=== PATIENT | female | born 1960 | race African-American/Black ===

== ENCOUNTER 2016-10-08 20:40 | Emergency (ER) | payer MEDICAID ==
[~2016-10-08] VITALS: Ht 165.1 cm; Wt 101.6 kg
[2016-10-08 21:00] VITALS: BP 124/77
[2016-10-08] MEDS ORDERED: KETOROLAC TROMETH 60MG/2ML VIAL IM ONE (23:15)
== END 2016-10-09 00:25 | disposition home or self-care (01) ==
LOC: ER 20:52
DX: M79.605 Pain in left leg (principal); Z76.0 Encounter for issue of repeat prescription; Z88.2 Allergy status to sulfonamides
CPT/HCPCS: 96372; 99283; J1885

== ENCOUNTER 2020-11-11 07:14 | Emergency (ER) | payer MEDICAID ==
[~2020-11-11] VITALS: Ht 165.1 cm; Wt 93.0 kg
[2020-11-11 08:11] LABS: Basophils # (auto) 0 10 ^3/uL (0-0.2); Basophils % (auto) 0.4 % (0.0-2.0); Eosinophils # (auto) 0.1 10 ^3/uL (0-0.8); Lymphocytes # (auto) 2.3 10 ^3/uL (0.4-5.4); Monocytes # (auto) 0.5 10 ^3/uL (0-1.3); Neutrophils # (auto) 6.9 10 ^3/uL (1.6-8.6)
[2020-11-11 08:14] LABS: Eosinophils % (auto) 1.3 % (0.0-7.0); Hematocrit 42.1 % (36.0-46.0); Lymphocytes % (auto) 23.5 % (10.0-50.0); Mean Corpuscular Hemoglobin 26.2 pg (28.0-32.0); Mean Corpuscular Hgb Conc. 33.3 g/dL (32.0-36.0); Mean Corpuscular Volume 78.6 fL (80.0-100.0); Monocytes % (auto) 5.3 % (0.0-12.0); Neutrophils % (auto) 69.5 % (37.0-80.0); Platelet Count (auto) 241 10^3/uL (140-450); Red Blood Cells 5.36 10^6/uL (4.0-5.20); Red Cell Distribution Width 13.8 % (11.8-14.3); White Blood Cell 9.9 10^3/uL (4.4-10.8)
[2020-11-11 08:25] LABS: Chloride 108 mmol/L (98-107); Potassium 3.8 mmol/L (3.5-5.1); Sodium 141 mmol/L (136-145)
[2020-11-11 08:32] LABS: Urine Bacteria FEW /hpf (None Seen); Urine Blood Negative /uL (Negative); Urine Mucus FEW (None Seen); Urine Specific Gravity 1.033 (1.001-1.035); Urine WBC 11 /hpf (0 - 5)
[2020-11-11 08:34] LABS: Alanine Aminotransferase 15 U/L (13-56); Alkaline Phosphatase 21 U/L (45-117); Anion Gap 10 (5-15); Aspartate Aminotransferase 14 U/L (15-37); BUN/Creatinine Ratio 21.9; Bilirubin, Total 0.9 mg/dL (0.2-1.0); Blood Urea Nitrogen 21 mg/dL (7-18); Calcium 9.2 mg/dL (8.5-10.1); Carbon Dioxide 23 mmol/L (21-32); GFR African American 77 mL/min; GFR Non-African American 63 mL/min; Glucose 83 mg/dL (74-106); Total Protein 7.6 g/dL (6.4-8.2)
[2020-11-11] MEDS ORDERED: cefTRIAXone 1GM/50ML D5W 50 ML IV ONE (10:45)
[2020-11-11] MEDS ORDERED: SODIUM CHLORIDE 0.9% 500 ML IVB ONE (10:45)
[2020-11-11] MEDS ORDERED: SODIUM CHLORIDE 0.9% 1,000 ML IV ONE (10:45)
[2020-11-11 12:51] VITALS: BP 131/92
== END 2020-11-11 12:54 | disposition home or self-care (01) ==
LOC: ER 07:14
DX: N39.0 Urinary tract infection, site not specified (principal); K30 Functional dyspepsia; R11.2 Nausea with vomiting, unspecified; Z88.2 Allergy status to sulfonamides
CPT/HCPCS: 36415; 80053; 81001; 84484; 85025; 93005; 96365; 99285; J0696; J7030; J7040

== ENCOUNTER 2021-02-28 13:03 | Emergency (ER) | payer MEDICAID ==
[~2021-02-28] VITALS: Ht 165.1 cm; Wt 93.0 kg
[2021-02-28 13:10] VITALS: BP 139/94
[2021-02-28 13:56] LABS: Basophils # (auto) 0 10 ^3/uL (0-0.2); Eosinophils # (auto) 0 10 ^3/uL (0-0.8); Mean Corpuscular Hemoglobin 25.4 pg (28.0-32.0); Red Cell Distribution Width 13.5 % (11.8-14.3); White Blood Cell 12.7 10^3/uL (4.4-10.8)
[2021-02-28 14:00] LABS: Basophils % (auto) 0.3 % (0.0-2.0); Hematocrit 43.5 % (36.0-46.0); Lymphocytes # (auto) 0.8 10 ^3/uL (0.4-5.4); Lymphocytes % (auto) 6.2 % (10.0-50.0); Mean Corpuscular Hgb Conc. 32.2 g/dL (32.0-36.0); Mean Corpuscular Volume 78.8 fL (80.0-100.0); Monocytes # (auto) 0.4 10 ^3/uL (0-1.3); Monocytes % (auto) 3.5 % (0.0-12.0); Neutrophils # (auto) 11.4 10 ^3/uL (1.6-8.6); Nucleated Red Blood Cells % 0.1 %; Red Blood Cells 5.52 10^6/uL (4.0-5.20)
[2021-02-28 14:17] LABS: Calcium 9.8 mg/dL (8.5-10.1)
[2021-02-28 14:20] LABS: Albumin 4.1 g/dL (3.4-5.0); BUN/Creatinine Ratio 19.2
[2021-02-28 14:23] LABS: Bilirubin, Total 1.2 mg/dL (0.2-1.0); Total Protein 7.8 g/dL (6.4-8.2)
[2021-02-28 14:26] LABS: Urine Bacteria NONE SEEN /hpf (None Seen); Urine Blood Negative /uL (Negative); Urine Mucus FEW (None Seen); Urine Specific Gravity 1.024 (1.001-1.035); Urine WBC 3 /hpf (0 - 5)
== END 2021-02-28 20:53 | disposition left against medical advice (07) ==
LOC: ER 13:03
DX: R11.2 Nausea with vomiting, unspecified (principal); R10.9 Unspecified abdominal pain; R00.0 Tachycardia, unspecified; Z53.21 Procedure and treatment not carried out due to patient leaving prior to being seen by health care provider
CPT/HCPCS: 36415; 80053; 81001; 85025; 93005

== ENCOUNTER 2021-05-03 01:09 | Emergency (ER) | payer MEDICAID ==
[~2021-05-03] VITALS: Ht 165.1 cm; Wt 93.0 kg
[2021-05-03 04:02] VITALS: BP 135/92
[2021-05-03] MEDS ORDERED: ACETAMINOPHEN 500 MG TAB PO ONE (04:30)
[2021-05-03] MEDS ORDERED: ONDANSETRON ODT 4 MG TAB PO ONE (04:30)
== END 2021-05-03 04:38 | disposition home or self-care (01) ==
LOC: ER 01:09
DX: U07.1 COVID-19 (principal); R05.9 Cough, unspecified; R09.81 Nasal congestion; R11.2 Nausea with vomiting, unspecified; R51.9 Headache, unspecified; R50.9 Fever, unspecified; R53.83 Other fatigue; Z98.890 Other specified postprocedural states
CPT/HCPCS: 36415; 71045; 87426; 99284; Q0162

== ENCOUNTER 2023-05-26 10:58 | Emergency (ER) | payer MEDICAID ==
[~2023-05-26] VITALS: Ht 162.6 cm; Wt 93.0 kg
[2023-05-26 11:04] VITALS: BP 142/98; PULSE 87; RESP 18; TEMP 98.2; O2SAT 100
[2023-05-26] MEDS ORDERED: PROPARACAINE HCL 0.5% OPTH(EYE) SOL 15ML OP ONE (11:15)
[2023-05-26] MEDS ORDERED: FLUORESCEIN SOD OPTH TEST STRIP OP ONE (11:15)
[2023-05-26] MEDS ORDERED: ERYTHROMY OPTH OINT 5mg/gm 1gm or 3.5gm tube OP ONE (11:45)
[2023-05-26] MEDS ORDERED: TETRACAINE HCL 0.5% OPTH(EYE) SOLN 4ML RIGHTEYE ONE (11:45)
[2023-05-26] MEDS ORDERED: CIPR0.3S67 OP (12:21)
[2023-05-26] MEDS ORDERED: CARB0.5D28 OP (12:21)
== END 2023-05-26 12:57 | disposition home or self-care (01) ==
LOC: EDBD 10:58 → ER 10:58
DX: T15.01XA Foreign body in cornea, right eye, initial encounter (principal); H16.001 Unspecified corneal ulcer, right eye; H10.211 Acute toxic conjunctivitis, right eye; W22.8XXA Striking against or struck by other objects, initial encounter; Y93.89 Activity, other specified; Y92.89 Other specified places as the place of occurrence of the external cause; Y99.8 Other external cause status
CPT/HCPCS: 65220

== ENCOUNTER 2023-10-24 09:39 | Emergency (ER) | payer MEDICAID ==
[~2023-10-24] VITALS: Ht 165.1 cm; Wt 88.2 kg
[~2023-10-24 09:39] MED LIST: CARB0.5D28 OP; CIPR0.3S67 OP
[2023-10-24] MEDS: SODIUM CHLORIDE 0.9% 1,000 ML IV ONE ×2 (10:14→10:58)
[2023-10-24] MEDS: THIAMINE 100mg/ml INJ (200mg/2ml VIAL) IV ONE (10:17)
[2023-10-24 13:40] VITALS: BP 122/77; PULSE 93; RESP 16; TEMP 98; O2SAT 99
[2023-10-24 14:01] LABS: Urine Bacteria None Seen /hpf (None Seen)
[2023-10-24 14:27] LABS: Urine Blood Negative /uL (Negative); Urine Clarity Clear (Clear); Urine Color Light-Yellow (Yellow); Urine Mucus FEW (None Seen); Urine Protein, UAD Negative (Negative); Urine Specific Gravity 1.011 (1.001-1.035); Urine Urobilinogen Normal (Negative); Urine WBC 1 /hpf (0 - 5)
[2023-10-24 16:18] LABS: Amphetamine Screen, Urine Neg (NEGATIVE); Barbiturate Scree,Urine Neg (NEGATIVE); Benzodiazephine Screen, Urine Neg (NEGATIVE); Cocaine Screen, Urine Neg (NEGATIVE)
[2023-10-24 16:19] LABS: Cannabinoid Screen, Urine Neg (NEGATIVE); Opiate Scree,Urine Neg (NEGATIVE); Phencyclidine Screen, Urine Neg (NEGATIVE)
== END 2023-10-24 14:25 | disposition home or self-care (01) ==
LOC: ER 09:39
DX: G89.4 Chronic pain syndrome (principal); M79.10 Myalgia, unspecified site; F19.20 Other psychoactive substance dependence, uncomplicated; Z98.890 Other specified postprocedural states
CPT/HCPCS: 36415; 80307; 80320; 81001; 96361; 96374; 99283; J3411; J7030

== ENCOUNTER 2024-08-20 08:03 | Emergency (ER) | payer MEDICAID ==
[~2024-08-20] VITALS: Ht 165.1 cm; Wt 101.0 kg
[2024-08-20 08:29] VITALS: BP 140/79; PULSE 90; RESP 18; TEMP 97.9; O2SAT 99
[2024-08-20] MEDS ORDERED: HYDR-4902 PO (09:21)
[2024-08-20] MEDS ORDERED: METH4PAK PO (09:21)
[2024-08-20] MEDS ORDERED: METH-1181 PO (09:21)
--- NOTE | 2024-08-20 09:22 | ED.PDOC ---
Back pain HPI HPI Comments 64 year old history of chronic back pain presents for atraumatic right lower back pain that radiates down the right posterior extremity x1 week. No trauma no injury. Denies any red flags Chief Complaint: Back Pain Time Seen by MD: 08:54 Primary Care Provider: constance nolan Reviewed Notes: Nurses Notes, Medications, Allergies Allergies: Coded Allergies: No Known Drug Allergy (Verified Allergy, Unknown, 10/24/23) Uncoded Allergies: SULFA (Allergy, Unknown, 03/20/15) Home Meds Active Scripts Methylprednisolone (Medrol Dosepak) 4 Mg Richardson, 4 MG PO UD for 7 Days, #21 TAB 0 Refills UAD Prov:JEROME MALDONADO MALT HOUSE OPERATOR 08/20/24 Methocarbamol (Methocarbamol) 500 Mg Tab, 500 MG PO BIDP PRN for 10 Days, #20 TAB 0 Refills Prov:JEROME MALDONADO MALT HOUSE OPERATOR 08/20/24 Hydrocodone-Acetaminophen (Hydrocodone Bitartrate/AC 5-325 mg) 1 Tab Tab, 1 TAB PO BIDP PRN for 7 Days, #14 TAB 0 Refills Prov:KALE MALDONADOJann Garay MALT HOUSE OPERATOR 08/20/24 Carboxymethylcellulose Sodium (Refresh Tears) 0.5 % Moe, 0.5 % OP QID, #15 ML Prov:CHANDRA CLIFTON [facility] 05/26/23 Ciprofloxacin HCl (Ophth) (Ciprofloxacin Hydrochlori) 0.3 % Salena, 0.3 % OP QID, #10 ML Prov:CHANDRA CLIFTON [facility] 05/26/23 Information Source: Patient Mode of Arrival: Ambulatory Past Medical History PAST MEDICAL HISTORY: Denies Surgical History: CHIEF PHYSICAL THERAPIST History: No Pertinent CHIEF PHYSICAL THERAPIST History Family History Family History: Reviewed,noncontributory to illness, Family hx of DM Social History Smoker: Non-Smoker Alcohol: Denies ETOH Use Drugs: Denies Drug Use Lives In: Home All Other Systems: Reviewed and Negative (per hpi) Physical Exam General Appearance: No Apparent Distress, Normal HEENT: Normal ENT Inspection, Pharynx Normal, TMs Normal Neck: Full Range of Motion, Non-Tender, Normal, Normal Inspection Respiratory: Chest Non-Tender, Lungs Clear, No Accessory Muscle Use, No Respiratory Distress, Normal Breath Sounds Cardiovascular: No Edema, No JVD, No Murmur, No Gallop, Normal Peripheral Pulses, Regular Rate/Rhythm Breast Exam: Deferred Gastrointestinal: No Organomegaly, Non Tender, No Pulsatile Mass, Normal Bowel Sounds, Soft Genitalia: Deferred Pelvic: Deferred Rectal: Deferred Extremities: No calf tenderness, Normal capillary refill, Normal inspection, Normal range of motion, Non-tender, No pedal edema Musculoskeletal : Extremity Location: Back (Straight leg raise test positive) Apperance: Normal Neurologic: Alert, home service consultant II-XII nml as Tested, No Motor Deficits, Normal Affect, Normal Mood, No Sensory Deficits Cerebellar Function: Normal Reflexes: Normal Skin: Dry, Normal Color, Warm Lymphatic: No Adenopathy Was a procedure done? Was a procedure done?: No Back Pain Differential Dx Differential Diagnosis: Musculoskeletal Pain X-Ray, Labs, Meds, VS Vital Signs Date Time Temp Pulse Resp B/P (MAP) Pulse Ox O2 Delivery O2 Flow Rate FiO2 08/20/24 08:29 97.9 90 18 140/79 (99) 99 97.9 08/20/24 08:29 90 18 08/20/24 08:29 97.9 90 18 140/79 (99) 99 08/20/24 08:24 88 X-Ray, Labs, Meds, VS Comment Given patient's history and exam: Sciatica, cord compression, cauda equina, aortic dissection, Guillain-[place] syndrome, epidural hematoma/abscess were all considered. Patient not toxic or ill-appearing. Vital signs within acceptable limits. Positive straight leg raise on exam with tenderness to the buttock consistent with sciatica. No vertebral point tenderness noted over the T or [place]. No paraspinal muscle tenderness noted. No fever or IV drug use the. The differential for an acute vascular, neurologic, malignant, or infectious etiologies is much less likely given his/her presentation. The patient does not warrant a radiological exam at this time. Checked the [employer] website, no history of narcotic use within the past year. Will prescribe Callery p.o. for pain management. Education provided on possible side effects of medication including drowsiness, nausea, respiratory distress, etc. Do not drive, operate heavy machinery or make legal decisions while taking medication. Follow-up with your PMD within 24 to 48 hours. Advised patient to try to take alternating Ibuprofen and Tylenol to help with inflammation of the sciatic nerve and surrounding tissues and should try to do low back stretches but also try to rest and avoid excessive sitting and bending. On reassessment, the patient's symptoms improved, and patient was able to ambulate without assistive devices. The patient will f/u with PMD to see if his/her symptoms jessica. An MRI may need to be ordered if the symptoms worsen or do not improve over time. The patient was counseled in regard to the diagnosis and management of the condition and verbalized understanding of this. The p atient understands to return to the ER or seek immediate medical attention if the symptoms worsen or return. Time of 1ST Reevaluation: 09:00 Reevaluation 1ST: Improved Patient Education/Counseling: Diagnosis, Treatment Family Education/Counseling: Diagnosis, Treatment Departure 1 Departure Time of Disposition: 09:18 Impression: Primary Impression: Lumbar radiculopathy Disposition: HOME / SELF CARE / HOMELESS Condition: Stable e-Prescriptions Methylprednisolone (Medrol Dosepak) 4 Mg Richardson 4 MG PO UD for 7 Days, #21 TAB 0 Refills UAD Prov: JEROME MALDONADO MALT HOUSE OPERATOR 08/20/24 Methocarbamol (Methocarbamol) 500 Mg Tab 500 MG PO BIDP PRN for 10 Days, #20 TAB 0 Refills Prov: JEROME MALDONADO MALT HOUSE OPERATOR 08/20/24 Hydrocodone-Acetaminophen (Hydrocodone Bitartrate/AC 5-325 mg) 1 Tab Tab 1 TAB PO BIDP PRN for 7 Days, #14 TAB 0 Refills Prov: JEROME MALDONADO MALT HOUSE OPERATOR 08/20/24 Critical Care Note Critical Care Time?: No Stability Stability form required: No Heart Score Heart Score: Heart Score Response (Comments) Value History N/A 0 EKG N/A 0 Age N/A 0 Risk Factors N/A 0 Troponin N/A 0 Total 0 JEROME MALDONADO NP Aug 20, 2024 09:22
--- NOTE | 2024-08-20 13:46 | ECG ---
[facility] Test Date: 2024-08-20 Test Time: 08:24:45 Pat Name: BERNARDINO FOOTE Department: ER Room: Gender: F Paint Booth Operator: ROBYN : 1960 Requested By: JEROME MALDONADO Order Number: [id number] Reading MD: Measurements Intervals [place] Rate: 88 P: 54 MN: 146 QRS: 4 QRSD: 94 T: 32 QT: 356 QTc: 431 Interpretive Statements Sinus rhythm Low voltage, precordial leads Please click the below link to view image of tracing.
== END 2024-08-20 09:31 | disposition home or self-care (01) ==
LOC: ER 08:03
DX: M54.16 Radiculopathy, lumbar region (principal); Z98.890 Other specified postprocedural states; Z79.899 Other long term (current) drug therapy
CPT/HCPCS: 93005

== ENCOUNTER 2025-01-01 22:17 | Emergency (ER) | payer MEDICAID ==
[~2025-01-01] VITALS: Ht 165.1 cm; Wt 100.0 kg
[2025-01-01 22:17] VITALS: BP 148/91; PULSE 79; RESP 14; TEMP 98.1; O2SAT 98
[~2025-01-01 22:17] MED LIST changes: +HYDR-4902 PO; +METH-1181 PO; +METH4PAK PO
[2025-01-02] MEDS ORDERED: KETOROLAC TROMETH 60MG/2ML VIAL IM ONE (02:30)
[2025-01-02] MEDS ORDERED: ACE3T PO (02:31)
--- NOTE | 2025-01-02 02:32 | ED.PDOC ---
Musculoskeletal HPI Comments 64-year-old female presents to ER with complaints of insect bite x5 days. Patient reports that she was bit by an unknown type of insect on her left upper leg 5 days ago and has since been experiencing pain localized to site of insect bites. She rates her current pain a throbbing/itching 8/10 localized to site of insect bites on left upper leg and reports that she did follow up with a provider 4 days ago and was prescribed Keflex antibiotics that she has been taking without relief. Patient presents to ER ambulatory, with steady gait, in no distress. Denies fever, body aches, chills, joint pain, skin drainage, calf pain, shortness of breath, headache, nausea/vomiting or any further s ymptoms/complaints Chief Complaint: Lower Extremity Time Seen by MD: 23:34 Primary Care Provider: constance nolan Reviewed Notes: Nurses Notes, Medications, Allergies Allergies: Coded Allergies: No Known Drug Allergy (Verified Allergy, Unknown, 10/24/23) Uncoded Allergies: SULFA (Allergy, Unknown, 03/20/15) Home Meds Active Scripts Acetaminophen W/ Codeine (Tylenol W/Cod #3) 1 Tab Tb, 1 TAB PO Q6HPRN, #10 TAB 0 Refills Prov:ANDREA CARRILLO 01/02/25 Methylprednisolone (Medrol Dosepak) 4 Mg Richardson, 4 MG PO UD for 7 Days, #21 TAB 0 Refills UAD Prov:JEROME MALDONADO NP 08/20/24 Methocarbamol (Methocarbamol) 500 Mg Tab, 500 MG PO BIDP PRN for 10 Days, #20 TAB 0 Refills Prov:JEROME MALDONADO NP 08/20/24 Hydrocodone-Acetaminophen (Hydrocodone Bitartrate/AC 5-325 mg) 1 Tab Tab, 1 TAB PO BIDP PRN for 7 Days, #14 TAB 0 Refills Prov:JEROME MALDONADO NP 08/20/24 Carboxymethylcellulose Sodium (Refresh Tears) 0.5 % Moe, 0.5 % OP QID, #15 ML Prov:CHANDRA CLIFTON [facility] 05/26/23 Ciprofloxacin HCl (Ophth) (Ciprofloxacin Hydrochlori) 0.3 % Salena, 0.3 % OP QID, #10 ML Prov:CHANDRA CLIFTON [facility] 05/26/23 Information Source: Patient Mode of Arrival: Ambulatory Past Medical History PAST MEDICAL HISTORY: GERD Surgical History: Surgical History (Other): Left hip surgery GAS REFRIGERATOR SERVICER History: No Pertinent GAS REFRIGERATOR SERVICER History Family History Family History: Family hx of DM Social History Smoker: Non-Smoker Alcohol: Denies ETOH Use Drugs: Denies Drug Use Lives In: Home Constitutional: denies: chills, diaphoresis, fatigue, fever, malaise, sweats, weakness, others EENTM: denies: blurred vision, double vision, ear bleeding, ear discharge, ear drainage, ear pain, ear ringing, eye pain, eye redness, hearing loss, mouth pain, mouth swelling, nasal discharge, nose bleeding, nose congestion, nose pain, photophobia, tearing, throat pain, throat swelling, voice changes, others Respiratory: denies: cough, hemoptysis, orthopnea, SOB at rest, shortness of breath, SOB with excertion, stridor, wheezing, others Cardiovascular: denies: chest pain, dizzy spells, diaphoresis, Dyspnea on exer tion, edema, irregular heart beat, left arm pain, lightheadedness, palpitations, PND, syncope, others Gastrointestinal: denies: abdomen distended, abdominal pain, blood streaked bowels, constipated, diarrhea, dysphagia, difficulty swallowing, hematemesis, melena, nausea, poor appetite, poor fluid intake, rectal bleeding, rectal pain, vomiting, others Genitourinary: denies: abnormal vagina bleeding, burning, dyspareunia, dysuria, flank pain, frequency, hematuria, incontinence, pain, , vagina discharge, urgency, others Neurological: denies: dizziness, fainting, headache, left sided numbness, left sided weakness, numbness, paresthesia, pre-existing deficit, right sided numbness, right sided weakness, seizure, speech problems, tingling, tremors, weakness, others Musculoskeletal: denies: back pain, gout, joint pain, joint swelling, muscle pain, muscle stiffness, neck pain, others Integumetry: reports: others (As stated in HPI) Allergic/Immunocompromised: denies: Difficulty Healing, Frequent Infections, Hives, Itching, others Hematologic/Lymphatic: denies: anemia, blood clots, easy bleeding, easy bruising, swollen glands, others Endocrine: denies: excessive hunger, excessive sweating, excessive thirst, excessive urination, flushing, intolerance to cold, intolerance to heat, unexplained weight gain, unexplained weight loss, others Psychiatric: denies: anxiety, bipolar disorder, depression, hopeless, panic disorder, schizophrenia, sleepless, suicidal, others Physical Exam General Appearance: No Apparent Distress HEENT: PERRL/EOMI Neck: Full Range of Motion, Non-Tender, Normal Respiratory: Chest Non-Tender, Lungs Clear, No Accessory Muscle Use, No Respiratory Distress, Normal Breath Sounds Cardiovascular: No Murmur, No Gallop, Regular Rate/Rhythm Breast Exam: Deferred Gastrointestinal: NOT DONE Genitalia: Deferred Pelvic: Deferred Rectal: Deferred Extremities: No calf tenderness, Normal capillary refill, Normal range of motion, No pedal edema Neurologic: Alert, No Motor Deficits, Normal Affect, Normal Mood, No Sensory Deficits Cerebellar Function: Normal Reflexes: Normal Skin: Dry, Warm, Other (2 small insect bites <1 cm in size noted to left upper posterior leg with minimal surrounding erythema. No fluctuance/drainage/red streaking/further skin changes noted) Peripheral Pulses: 2+ femoral (R), 2+ femoral (L), 2+ dorsalis pedis (R), 2+ dorsalis pedis (L), 2+ Radial (R), 2+ Radial (L), 2+ Brachial (R), 2+ Brachial (L) Lymphatic: No Adenopathy Was a procedure done? Was a procedure done?: No Sedation Sedation?: No Differential Diagnosis EXT Differential Diagnosis: Deep Vein Thrombosis, Fracture, Neurovascular injury, Other (Abscess) X-Ray, Labs, Meds, VS Vital Signs Date Time Temp Pulse Resp B/P (MAP) Pulse Ox O2 Delivery O2 Flow Rate FiO2 01/01/25 22:17 98.1 79 14 148/91 (110) 98 98.1 Toradol 60 mg IM ordered Advised to continue Keflex antibiotics as prescribed Advised to follow up with PCP in 1-2 days Patient verbalized understanding and agreeable with current plan of care Advised to return to ER immediately if symptoms Time of 1ST Reevaluation: 02:14 Reevaluation 1ST: N/A Patient Education/Counseling: Diagnosis, Treatment, Prognosis, Need For Follow Up Family Education/Counseling: No Family Present Departure 1 Departure Time of Disposition: 02:30 Impression: Primary Impression: Insect bite of left leg Qualified Codes: S80.862A - Insect bite (nonvenomous), left lower leg, initial encounter; W57.XXXA - Bitten or stung by nonvenomous insect and other nonvenomous arthropods, initial encounter Disposition: HOME / SELF CARE / HOMELESS Condition: Stable e-Prescriptions Methylprednisolone (Medrol Dosepak) 4 Mg Richardson 4 MG PO UD, #21 TAB UAD Prov: ANDREA CARRILLO 01/02/25 Acetaminophen W/ Codeine (Tylenol W/Cod #3) 1 Tab Tb 1 TAB PO Q6HPRN, #10 TAB 0 Refills Prov: ANDREA CARRILLO 01/02/25 Discharged With: Self Critical Care Note Critical Care Time?: No Stability Stability form required: No Heart Score Heart Score: Heart Score Response (Comments) Value History N/A 0 EKG N/A 0 Age N/A 0 Risk Factors N/A 0 Troponin N/A 0 Total 0 ANDREA CARRILLO Jan 02, 2025 02:32
[2025-01-02] MEDS ORDERED: METH4PAK PO (02:36)
== END 2025-01-02 05:04 | disposition home or self-care (01) ==
LOC: ER 22:17
DX: S70.362A Insect bite (nonvenomous), left thigh, initial encounter (principal); K21.9 Gastro-esophageal reflux disease without esophagitis; Z98.890 Other specified postprocedural states; Z88.2 Allergy status to sulfonamides; Z79.899 Other long term (current) drug therapy; W57.XXXA Bitten or stung by nonvenomous insect and other nonvenomous arthropods, initial encounter; Y93.89 Activity, other specified; Y92.89 Other specified places as the place of occurrence of the external cause; Y99.8 Other external cause status